=== PATIENT | male | born 1995 | race Caucasian/White ===

== ENCOUNTER 2016-09-11 13:01 | Emergency (ER) | payer BC ==
[~2016-09-11] VITALS: Ht 175.3 cm; Wt 102.8 kg
[2016-09-11 13:06] VITALS: TEMP 37; Ht 175.3 cm; Wt 102.8 kg
[2016-09-11] MEDS ORDERED: SERT-234 PO (13:26)
[2016-09-11] MEDS ORDERED: SNQ/25 PO (13:26)
[2016-09-11] MEDS ORDERED: MoRPHine SULFATE 10 MG/ML CARP/VIAL IM STA (14:11)
[2016-09-11] MEDS ORDERED: KETOROLAC TROMETHAMINE 60 MG/2 ML VIAL IM STA (14:11)
[2016-09-11] MEDS ORDERED: PROMETHAZINE HCL INJ 25 MG/ML 1 ML VIAL IM STA (14:11)
--- NOTE | 2016-09-11 15:04 | DIAGNOSTIC IMAGING REPORT ---
LUMBAR SPINE 5 VIEWS HISTORY: Low back pain. COMPARISON: None. FINDINGS: There is no fracture. No subluxation. Disc spaces are preserved. Metallic sutures coils within the right lower quadrant. The sacrum appears intact. IMPRESSION: No fracture or subluxation within the lumbar spine. Electronically signed by: Darryl Boyd M.D. 09/11/2016 3:02 PM Dictated Date/Time: 09/11/2016 3:01 PM
[2016-09-11] MEDS ORDERED: TRAM-10 PO (15:37)
[2016-09-11 15:58] VITALS: BP 144/77; PULSE 72; O2SAT 97
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
== END 2016-09-11 15:58 | disposition home or self-care (01) ==
LOC: C.EDB 13:01 → C.EDC 15:58
DX: M54.5 Low back pain (principal); Z79.899 Other long term (current) drug therapy

== ENCOUNTER 2017-06-01 18:30 | Emergency (ER) | payer BC, OTHER ==
[~2017-06-01] VITALS: Ht 172.7 cm; Wt 102.3 kg
[~2017-06-01 18:30] MED LIST: SERT-234 PO; SNQ/25 PO
[2017-06-01 18:50] VITALS: TEMP 37.1; Ht 172.7 cm; Wt 102.3 kg
[2017-06-01] MEDS ORDERED: QUET1TAB37 PO (18:56)
[2017-06-01] MEDS ORDERED: QUET1TAB32 PO (18:56)
[2017-06-01] MEDS ORDERED: SODIUM CHLORIDE 0.9% 1000ML 1,000 ML IV STA (19:08)
[2017-06-01] MEDS ORDERED: KETOROLAC TROMETHAMINE 30 MG/ML VIAL IV STA (19:08)
--- NOTE | 2017-06-01 19:23 | EMERGENCY ROOM VISIT NOTE ---
History First contact with patient: 19:07 Chief Complaint: ABDOMINAL PAIN Stated Complaint: SHARP PAINS IN LOWER LEFT ABDOMEN History of Present Illness The patient is a 22 year old male who presents to the Emergency Room with complaints of epigastric and LLQ pain beginning at 9-10AM today. He states the pain is dull, 3/10, and worsens with movement, becoming an 8/10 sharp pain. He notes that he has had black stools 3-4 times over the last couple of months, but denies the presence of bright red blood or blood on the toilet paper. He states he has had diarrhea off and on for the last few weeks, and notes that he would feel as though he had to have a BM, and then nothing would happen, and then later he would have a sense of urgency and had a BM straightaway. He denies recent antibiotic use, recent hospitalization or travel, or sick contacts. He also denies n/v, fever, chills. His last BM was 2 hours prior to his arrival in the ED and he reports it was soft in consistency. Review of Systems See HPI for pertinent positives & negatives. A total of 10 systems reviewed and were otherwise negative. Past Medical/Surgical History Medical Problems: (1) Inguinal hernia Family History No pertinent family history Social History Smoking Status: Former Smoker Alcohol Use: occasionally Marital Status: single Housing Status: lives alone Occupation Status: employed, student Current/Historical Medications Scheduled Quetiapine Fumarate (Seroquel), 50 MG PO TID Quetiapine Fumarate (Seroquel), 300 MG PO HS Sertraline (Zoloft), 125 MG PO DAILY Physical Exam Vital Signs Date Time Temp Pulse Resp B/P (MAP) Pulse Ox O2 Delivery O2 Flow Rate FiO2 06/01/17 18:50 37.1 99 18 140/86 99 Room Air Physical Exam HEENT: Head - normocephalic and atraumatic. Mouth - moist buccal mucosa. Oropharynx is nonerythematous and there is no tonsillar exudate or edema noted. Heart: Regular rate and rhythm. There is a normal S1 and S2 with no murmurs, clicks, or gallops appreciated. Lungs: Clear to auscultation bilaterally with no wheezes, rales, or rhonchi. Abdomen: Soft, tender over epigastric and LLQ regions.Distended. There are no palpable pulsatile masses or hepatosplenomegaly. There is no guarding, rigidity , or rebound noted. Extremities: No evidence of cyanosis, clubbing, or edema. There are easily palpable peripheral pulses. Neuro:The patient is awake and alert, oriented to day, time, and place. Medical Decision & Procedures ER Provider Diagnostic Interpretation: ABD/PELVIS WITHOUT FOR STONE CT DOSE: 1633.52 mGy.cm HISTORY: Abdominal pain llq pain TECHNIQUE: Multiaxial CT images of the abdomen and pelvis were performed without the use of intravenous and oral contrast according to the standard department stone protocol. A dose lowering technique was utilized adhering to the principles of ALARA. COMPARISON STUDY: 05/03/2010 FINDINGS: Lung bases are clear. Liver spleen and pancreas are unremarkable. Nonobstructive bowel pattern. Several reactive mesenteric nodes. Bulky adenopathy is not seen. 2 mm nonobstructing calcification lower pole left kidney. No evidence for renal hydronephrosis. The appendix is normal. Stable postoperative changes post right inguinal hernia repair. Bladder is midline. There are no contained calcifications. No free fluid within the pelvic cul-de-sac. IMPRESSION: 1. 2 mm nonobstructing calcification lower pole left kidney. 2. Mild mesenteric adenitis. Laboratory Results 06/01/17 19:20 Red Blood Count 4.87, Mean Corpuscular Volume 87.7, Mean Corpuscular Hemoglobin 32.0, Mean Corpuscular Hemoglobin Concent 36.5, Mean Platelet Volume 9.8, Neutrophils (%) (Auto) 58.7, Lymphocytes (%) (Auto) 33.1, Monocytes (%) (Auto) 6.4, Eosinophils (%) (Auto) 1.3, Basophils (%) (Auto) 0.4, Neutrophils # (Auto) 5.03, Lymphocytes # (Auto) 2.84, Monocytes # (Auto) 0.55, Eosinophils # (Auto) 0.11, Basophils # (Auto) 0.03 06/01/17 19:20 Test 06/01/17 19:20 06/01/17 19:30 White Blood Count 8.57 K/uL (4.8-10.8) Red Blood Count 4.87 M/uL (4.7-6.1) Hemoglobin 15.6 g/dL (14.0-18.0) Hematocrit 42.7 % (42-52) Mean Corpuscular Volume 87.7 fL (80-100) Mean Corpuscular Hemoglobin 32.0 pg (25-34) Mean Corpuscular Hemoglobin Concent 36.5 g/dl (32-36) Platelet Count 205 K/uL (130-400) Mean Platelet Volume 9.8 fL (7.4-10.4) Neutrophils (%) (Auto) 58.7 % Lymphocytes (%) (Auto) 33.1 % Monocytes (%) (Auto) 6.4 % Eosinophils (%) (Auto) 1.3 % Basophils (%) (Auto) 0.4 % Neutrophils # (Auto) 5.03 K/uL (1.4-6.5) Lymphocytes # (Auto) 2.84 K/uL (1.2-3.4) Monocytes # (Auto) 0.55 K/uL (0.11-0.59) Eosinophils # (Auto) 0.11 K/uL (0-0.5) Basophils # (Auto) 0.03 K/uL (0-0.2) RDW Standard Deviation 44.3 fL (36.4-46.3) RDW Coefficient of Variation 13.7 % (11.5-14.5) Immature Granulocyte % (Auto) 0.1 % Immature Granulocyte # (Auto) 0.01 K/uL (0.00-0.02) Anion Gap 8.0 mmol/L (3-11) Est Creatinine Clear Calc Drug Dose 125.7 ml/min Estimated GFR () 114.6 Estimated GFR (Non- 98.9 BUN/Creatinine Ratio 13.6 (10-20) Calcium Level 8.8 mg/dl (8.5-10.1) Total Bilirubin 0.3 mg/dl (0.2-1) Direct Bilirubin < 0.1 mg/dl (0-0.2) Aspartate Amino Transf (AST/SGOT) 16 U/L (15-37) Alanine Aminotransferase (ALT/SGPT) 39 U/L (12-78) Alkaline Phosphatase 77 U/L (45-117) Total Protein 7.4 gm/dl (6.4-8.2) Albumin 4.1 gm/dl (3.4-5.0) Lipase 152 U/L (73-393) Urine Color YELLOW Urine Appearance TURBID (CLEAR) Urine pH 7.5 (4.5-7.5) Urine Specific [place] 1.023 (1.000-1.030) Urine Protein NEG (NEG) Urine Glucose (UA) NEG (NEG) Urine Ketones NEG (NEG) Urine Occult Blood NEG (NEG) Urine Nitrite NEG (NEG) Urine Bilirubin NEG (NEG) Urine Urobilinogen NEG (NEG) Urine Leukocyte Esterase NEG (NEG) Urine WBC (Auto) 0 /hpf (0-5) Urine RBC (Auto) 0-4 /hpf (0-4) Urine Hyaline Casts (Auto) 0 /lpf (0-5) Urine Epithelial Cells (Auto) 0-5 /lpf (0-5) Urine Bacteria (Auto) NEG (NEG) Medications Administered Medications (Trade) Dose Ordered Sig/Gabriel Route Start Time Stop Time Status Last Admin Dose Admin Sodium Chloride 1,000 ml @ 999 mls/hr Q1H1M STAT IV 06/01/17 19:08 06/01/17 20:08 DC 06/01/17 19:29 999 MLS/HR Ketorolac Tromethamine (Toradol Inj) 30 mg NOW STAT IV 06/01/17 19:08 06/01/17 19:09 DC 06/01/17 19:27 30 MG ED Course 19:07: The patient was evaluated in room C4. A complete history and physical exam was performed. 19:08: 30mg IV ketorolac ordered 19:20: The case was discussed with the attending, Dr. Shabazz. 20:25: Patient was reassessed. He was resting comfortably. The results were discussed with the patient. He was agreeable to discharge. Medical Decision Etiologies such as diverticulitis, colitis, inflammatory bowel disease, malignancy, peptic ulcer disease, as well as others were entertained. The patient is a 22 year old male who presents to the Emergency Room with complaints of epigastric and LLQ pain beginning at 9-10AM today. His CBC, CMP and lipase were unremarkable. CT scan did not show any signs of obstruction or diverticulitis. His symptoms are likely viral in etiology, however given his longstanding bowel habit changes, he was counselled on following up with his PCP to further investigate this. He was also told to return if his symptoms worsened, or if he developed fever/chills with them. He was agreeable to this plan. Impression Primary Impression: Left lower quadrant pain Additional Impression: Diarrhea Departure Information Dispostion Home / Self-Care Referrals No Doctor, Assigned (PCP) Patient Instructions My [facility] Additional Instructions You came to [facility] emergency department due to abdominal pain and diarrhea. Your basic blood work was normal, including normal kidney, liver and pancreatic function. We also did a CT scan of your abdomen, which was normal. We recommend you follow up with your primary care provider, especially if your diarrhea persists, but your symptoms are likely due to a virus, and will resolve over time. Drink plenty of fluids, rest and please seek medical attention if you develop a fever, chills, worsening pain, nausea, or vomiting. Resident Tracking Resident Involvement: Resident Care Provided Care Provided: Adult ED Problem Qualifiers Additional Impression: Diarrhea Diarrhea type: unspecified type Qualified Codes: R19.7 - Diarrhea, unspecified
[2017-06-01 19:31] LABS: BASO % 0.4 %; BASO ABS # 0.03 K/uL (0-0.2); EOS % 1.3 %; EOS ABS # 0.11 K/uL (0-0.5); HEMATOCRIT 42.7 % (42-52); HEMOGLOBIN 15.6 g/dL (14.0-18.0); IG# 0.01 K/uL (0.00-0.02); LYMPH % 33.1 %; LYMPH ABS # 2.84 K/uL (1.2-3.4); MEAN CELL VOLUME 87.7 fL (80-100); MEAN CORPUSCULAR HGB CONC 36.5 g/dl (32-36); MEAN PLATELET VOLUME 9.8 fL (7.4-10.4); MONO % 6.4 %; MONO ABS # 0.55 K/uL (0.11-0.59); NEUT % 58.7 %; NEUT ABS # 5.03 K/uL (1.4-6.5); PLATELET COUNT 205 K/uL (130-400); RED CELL DISTRIBUTION WIDTH CV 13.7 % (11.5-14.5); RED CELL DISTRIBUTION WIDTH SD 44.3 fL (36.4-46.3); WHITE BLOOD COUNT 8.57 K/uL (4.8-10.8)
[2017-06-01 19:56] LABS: ALBUMIN 4.1 gm/dl (3.4-5.0); ALT/SGPT 39 U/L (12-78); BLOOD UREA NITROGEN 14 mg/dl (7-18); CALCIUM 8.8 mg/dl (8.5-10.1); CARBON DIOXIDE 26 mmol/L (21-32); CREATININE 1.05 mg/dl (0.60-1.40); GLUCOSE 90 mg/dl (70-99); LIPASE 152 U/L (73-393); POTASSIUM 3.4 mmol/L (3.5-5.1); SODIUM 138 mmol/L (136-145)
[2017-06-01 19:58] LABS: ALKALINE PHOSPHATASE 77 U/L (45-117); AST/SGOT 16 U/L (15-37); TOTAL PROTEIN 7.4 gm/dl (6.4-8.2)
--- NOTE | 2017-06-01 20:06 | DIAGNOSTIC IMAGING REPORT ---
ABD/PELVIS WITHOUT FOR STONE CT DOSE: 1633.52 mGy.cm HISTORY: Abdominal pain llq pain TECHNIQUE: Multiaxial CT images of the abdomen and pelvis were performed without the use of intravenous and oral contrast according to the standard department stone protocol. A dose lowering technique was utilized adhering to the principles of ALARA. COMPARISON STUDY: 05/03/2010 FINDINGS: Lung bases are clear. Liver spleen and pancreas are unremarkable. Nonobstructive bowel pattern. Several reactive mesenteric nodes. Bulky adenopathy is not seen. 2 mm nonobstructing calcification lower pole left kidney. No evidence for renal hydronephrosis. The appendix is normal. Stable postoperative changes post right inguinal hernia repair. Bladder is midline. There are no contained calcifications. No free fluid within the pelvic cul-de-sac. IMPRESSION: 1. 2 mm nonobstructing calcification lower pole left kidney. 2. Mild mesenteric adenitis. The above report was generated using voice recognition software. It may contain grammatical, syntax or spelling errors. Electronically signed by: Praveen Arzate M.D. 06/01/2017 8:04 PM Dictated Date/Time: 06/01/2017 8:01 PM
[2017-06-01 20:37] VITALS: BP 141/87; PULSE 83; O2SAT 98
--- NOTE | 2017-06-01 20:57 | EMERGENCY ROOM VISIT NOTE ---
History Report prepared by Mary Grace: Vaughn Dan Under the Supervision of: Dr. Andrea Shabazz D.O. First contact with patient: 19:07 Chief Complaint: ABDOMINAL PAIN Stated Complaint: SHARP PAINS IN LOWER LEFT ABDOMEN History of Present Illness The patient is a 22 year old male who presents to the Emergency Room with complaints of persistent epigastric and LLQ pain beginning at 9-10AM today. He states the pain is dull, rated a 3/10, and worsens with movement, becoming an 8/ 10 sharp pain. He notes that he has had black stools 3-4 times over the last couple of months, but denies the presence of bright red blood or blood on the toilet paper. He states he has had diarrhea off and on for the last few weeks, and notes that he would feel as though he had to have a BM, and then nothing would happen, and then later he would have a sense of urgency and had a BM straightaway. He denies recent antibiotic use, recent hospitalization or travel , or sick contacts. He also denies n/v, fever, chills. His last BM was 2 hours prior to his arrival in the ED and he reports it was soft in consistency. Source of History: patient Onset: This morning Position: abdomen (LLQ) Symptom Intensity: at worst 8/10 Timing: other (persistent) Modifying Factors (Worsening): movement Associated Symptoms: + diarrhea, No fevers, No chills, No nausea, No vomiting Note: Associated symptoms: Black stools. Denies presence of bright red blood or blood on toilet paper. Review of Systems See HPI for pertinent positives & negatives. A total of 10 systems reviewed and were otherwise negative. Past Medical & Surgical Medical Problems: (1) Inguinal hernia Family History No pertinent family history Social History Smoking Status: Former Smoker Alcohol Use: occasionally Marital Status: single Housing Status: lives alone Occupation Status: employed, student Current/Historical Medications Scheduled Quetiapine Fumarate (Seroquel), 50 MG PO TID Quetiapine Fumarate (Seroquel), 300 MG PO HS Sertraline (Zoloft), 125 MG PO DAILY Allergies Coded Allergies: No Known Drug Allergy (Verified Allergy, Unknown, `, 06/01/17) Physical Exam Vital Signs Date Time Temp Pulse Resp B/P (MAP) Pulse Ox O2 Delivery O2 Flow Rate FiO2 06/01/17 20:37 83 16 141/87 98 06/01/17 18:50 37.1 99 18 140/86 99 Room Air Physical Exam CONSTITUTIONAL/VITAL SIGNS: Reviewed / noted above. GENERAL: Non-toxic in appearance. INTEGUMENTARY: Warm, dry, and [place]. HEAD: Normocephalic. EYES: without scleral icterus or trauma. ENT/OROPHARYNX: clear and moist. LYMPHADENOPATHY/NECK: Is supple without lymphadenopathy or meningismus. RESPIRATORY: Lungs clear and equal. CARDIOVASCULAR: Regular rate and rhythm. GI/ABDOMEN: Soft. Tenderness in the left lower quadrant. No organomegaly or pulsatile mass. No rebound or guarding. Normal bowel sounds. EXTREMITIES: Warm and well perfused. BACK: No CVA tenderness. NEUROLOGICAL: Intact without focal deficits. PSYCHIATRIC: normal affect. MUSCULOSKELETAL: Normally developed with good muscle tone. Medical Decision & Procedures ER Provider Diagnostic Interpretation: CT results as stated below per my review and radiologist interpretation: ABD/PELVIS WITHOUT FOR STONE CT DOSE: 1633.52 mGy.cm HISTORY: Abdominal pain llq pain TECHNIQUE: Multiaxial CT images of the abdomen and pelvis were performed without the use of intravenous and oral contrast according to the standard department stone protocol. A dose lowering technique was utilized adhering to the principles of ALARA. COMPARISON STUDY: 05/03/2010 FINDINGS: Lung bases are clear. Liver spleen and pancreas are unremarkable. Nonobstructive bowel pattern. Several reactive mesenteric nodes. Bulky adenopathy is not seen. 2 mm nonobstructing calcification lower pole left kidney. No evidence for renal hydronephrosis. The appendix is normal. Stable postoperative changes post right inguinal hernia repair. Bladder is midline. There are no contained calcifications. No free fluid within the pelvic cul-de-sac. IMPRESSION: 1. 2 mm nonobstructing calcification lower pole left kidney. 2. Mild mesenteric adenitis. The above report was generated using voice recognition software. It may contain grammatical, syntax or spelling errors. Electronically signed by: Praveen Arzate M.D. 06/01/2017 8:04 PM Dictated Date/Time: 06/01/2017 8:01 PM Laboratory Results 06/01/17 19:20 Red Blood Count 4.87, Mean Corpuscular Volume 87.7, Mean Corpuscular Hemoglobin 32.0, Mean Corpuscular Hemoglobin Concent 36.5, Mean Platelet Volume 9.8, Neutrophils (%) (Auto) 58.7, Lymphocytes (%) (Auto) 33.1, Monocytes (%) (Auto) 6.4, Eosinophils (%) (Auto) 1.3, Basophils (%) (Auto) 0.4, Neutrophils # (Auto) 5.03, Lymphocytes # (Auto) 2.84, Monocytes # (Auto) 0.55, Eosinophils # (Auto) 0.11, Basophils # (Auto) 0.03 06/01/17 19:20 Test 06/01/17 19:20 06/01/17 19:30 White Blood Count 8.57 K/uL (4.8-10.8) Red Blood Count 4.87 M/uL (4.7-6.1) Hemoglobin 15.6 g/dL (14.0-18.0) Hematocrit 42.7 % (42-52) Mean Corpuscular Volume 87.7 fL (80-100) Mean Corpuscular Hemoglobin 32.0 pg (25-34) Mean Corpuscular Hemoglobin Concent 36.5 g/dl (32-36) Platelet Count 205 K/uL (130-400) Mean Platelet Volume 9.8 fL (7.4-10.4) Neutrophils (%) (Auto) 58.7 % Lymphocytes (%) (Auto) 33.1 % Monocytes (%) (Auto) 6.4 % Eosinophils (%) (Auto) 1.3 % Basophils (%) (Auto) 0.4 % Neutrophils # (Auto) 5.03 K/uL (1.4-6.5) Lymphocytes # (Auto) 2.84 K/uL (1.2-3.4) Monocytes # (Auto) 0.55 K/uL (0.11-0.59) Eosinophils # (Auto) 0.11 K/uL (0-0.5) Basophils # (Auto) 0.03 K/uL (0-0.2) RDW Standard Deviation 44.3 fL (36.4-46.3) RDW Coefficient of Variation 13.7 % (11.5-14.5) Immature Granulocyte % (Auto) 0.1 % Immature Granulocyte # (Auto) 0.01 K/uL (0.00-0.02) Anion Gap 8.0 mmol/L (3-11) Est Creatinine Clear Calc Drug Dose 125.7 ml/min Estimated GFR () 114.6 Estimated GFR (Non- 98.9 BUN/Creatinine Ratio 13.6 (10-20) Calcium Level 8.8 mg/dl (8.5-10.1) Total Bilirubin 0.3 mg/dl (0.2-1) Direct Bilirubin < 0.1 mg/dl (0-0.2) Aspartate Amino Transf (AST/SGOT) 16 U/L (15-37) Alanine Aminotransferase (ALT/SGPT) 39 U/L (12-78) Alkaline Phosphatase 77 U/L (45-117) Total Protein 7.4 gm/dl (6.4-8.2) Albumin 4.1 gm/dl (3.4-5.0) Lipase 152 U/L (73-393) Urine Color YELLOW Urine Appearance TURBID (CLEAR) Urine pH 7.5 (4.5-7.5) Urine Specific [place] 1.023 (1.000-1.030) Urine Protein NEG (NEG) Urine Glucose (UA) NEG (NEG) Urine Ketones NEG (NEG) Urine Occult Blood NEG (NEG) Urine Nitrite NEG (NEG) Urine Bilirubin NEG (NEG) Urine Urobilinogen NEG (NEG) Urine Leukocyte Esterase NEG (NEG) Urine WBC (Auto) 0 /hpf (0-5) Urine RBC (Auto) 0-4 /hpf (0-4) Urine Hyaline Casts (Auto) 0 /lpf (0-5) Urine Epithelial Cells (Auto) 0-5 /lpf (0-5) Urine Bacteria (Auto) NEG (NEG) Laboratory results as stated above per my review. Medications Administered Medications (Trade) Dose Ordered Sig/Gabriel Route Start Time Stop Time Status Last Admin Dose Admin Sodium Chloride 1,000 ml @ 999 mls/hr Q1H1M STAT IV 06/01/17 19:08 06/01/17 20:08 DC 06/01/17 19:29 999 MLS/HR Ketorolac Tromethamine (Toradol Inj) 30 mg NOW STAT IV 06/01/17 19:08 06/01/17 19:09 DC 06/01/17 19:27 30 MG ED Course 0: Previous medical records were reviewed. The patient was evaluated in room C4 by the resident, Dr. Victor. A complete history and physical examination was performed. 1908: Ordered Toradol Inj 30 mg IV, NSS 1000 ml @ 999 mls/hr IV. 1924: Previous medical records were reviewed. The patient was evaluated in room C4. A complete history and physical examination was performed. 2024: On reevaluation, the patient is resting. I discussed the results and findings with the patient. He verbalized agreement of the treatment plan. He was discharged home. Medical Decision Differential considered: pancreatitis, hepatitis, or acute cholecystitis, AAA, UTI, pyelonephritis, kidney stones, appendicitis, diverticulitis, shingles, bowel obstruction mesenteric ischemia, intussusception,hernia, testicular torsion. This is a 22-year-old male who presents to the ED with a chief complaint of diarrhea and some left lower quadrant abdominal pain. Further details listed above. His exam revealed some tenderness in the left lower quadrant. CBC and complete metabolic panel are unremarkable. Urine did not show infection. CT scan of the abdomen and pelvis did not show acute process. There was some findings suggesting mesenteric adenitis. The patient was told results the test. He was treated with medication here is noted above. He is felt to be stable for discharge. Medication Reconcilliation Current Medication List: was personally reviewed by me Blood Pressure Screening Patient's blood pressure: Elevated blood pressure Blood pressure disposition: Elevated BP felt to be situational Impression Primary Impression: Left lower quadrant pain Additional Impression: Diarrhea Scribe Attestation The scribe's documentation has been prepared under my direction and personally reviewed by me in its entirety. I confirm that the note above accurately reflects all work, treatment, procedures, and medical decision making performed by me. Departure Information Dispostion Home / Self-Care Referrals No Doctor, Assigned (PCP) Patient Instructions My [facility] Additional Instructions You came to [facility] emergency department due to abdominal pain and diarrhea. Your basic blood work was normal, including normal kidney, liver and pancreatic function. We also did a CT scan of your abdomen, which was normal. We recommend you follow up with your primary care provider, especially if your diarrhea persists, but your symptoms are likely due to a virus, and will resolve over time. Drink plenty of fluids, rest and please seek medical attention if you develop a fever, chills, worsening pain, nausea, or vomiting. Problem Qualifiers Additional Impression: Diarrhea Diarrhea type: unspecified type Qualified Codes: R19.7 - Diarrhea, unspecified
== END 2017-06-01 20:37 | disposition home or self-care (01) ==
LOC: C.EDB 18:31 → C.EDC 20:37
DX: R19.7 Diarrhea, unspecified (principal); Z87.891 Personal history of nicotine dependence; Z79.899 Other long term (current) drug therapy